=== PATIENT | male | born 1960 | race African-American/Black ===

== ENCOUNTER 2017-01-15 16:20 | Emergency (ER) | payer OTHER ==
[~2017-01-15] VITALS: Wt 73.5 kg
[2017-01-15] MEDS ORDERED: KETOROLAC 30 MG INJ IM STA (18:50)
[2017-01-15] MEDS ORDERED: HYDR-902 PO (20:25)
[2017-01-15] MEDS ORDERED: IBUP-1542 PO (20:25)
--- NOTE | 2017-01-15 20:29 | RADRPT ---
PROCEDURE: XR Chest. CLINICAL INDICATION: Fall, pain TECHNIQUE: Single frontal view of the chest was obtained. COMPARISON: None available FINDINGS: The cardiomediastinal silhouette is normal size. Pulmonary vasculature is within normal limits. Th ere is mild left base atelectasis.. No signs of pleural fluid or pneumothorax are seen. The osseous structures and soft tissues are unre markable. IMPRESSION: No evidence for active cardiopulmonary disease. Mild left base atelectasis.. RPTAT: HBST .Kory Rossi MD, MD Date Time Electronically viewed and signed by .Kory Rossi MD, MD on 01/15/2017 20:29 .T/
--- NOTE | 2017-01-15 20:30 | RADRPT ---
PROCEDURE: XR shoulder, left. CLINICAL INDICATION: Fall, pain TECHNIQUE: internal and external rotation views of the left shoulder were performed. COMPARISON: None. FINDINGS: There is normal osseous mineralization and alignment. No fracture or osseous lesion is identified. T here is normal alignment of the glenohumeral and acromioclavicular joints. The soft tissues are unre markable. IMPRESSION: Unremarkable left shoulder. No visualized fracture or dislocation. RPTAT: HBST .Kory Rossi MD, Date Time Electronically viewed and signed by .Kory Rossi MD, on 01/15/2017 20:30 .T/
--- NOTE | 2017-01-15 20:40 | ERD ---
ER Documentation Chief Complaint Date/Time DATE: 01/15/17 TIME: 20:38 Chief Complaint LEFT ARM/SHOULDER PAIN AFTER INJURY YESTERDAY HPI Patient is a 56-year-old male with no medical problems who presents with shoulder pain and right-sided rib pain. He said that 2 days ago he was jumping on a trampoline and jumped off and landed on his left side. He has left shoulder pain but has range of motion. Hurts to move however. He also has right-sided rib pain with movement. He feels anxious. He tried naproxen. He does not currently have a primary doctor. ROS All systems reviewed and are negative except as per history of present illness. Medications Home Meds Active Scripts Hydrocodone/Acetaminophen ([place] 10-325 Tablet) 1 Each Tablet, 1 TAB PO Q6H Y for PAIN, #7 TAB Prov:JESSY ESCUDERO MD 01/15/17 Ibuprofen* (Motrin*) 600 Mg Tab, 600 MG PO Q6H Y for PAIN AND OR ELEVATED TEMP, #30 TAB Prov:JESSY ESCUDEOR MD 01/15/17 Allergies Allergies: Coded Allergies: No Known Allergy (Unverified , 01/15/17) PMhx/Soc History of Surgery: No Anesthesia Reaction: No Hx Neurological Disorder: No Hx Respiratory Disorders: No Hx Cardiac Disorders: No Hx Psychiatric Problems: No Hx Miscellaneous Medical Probl: Yes (JOINT PAIN) Hx Alcohol Use: No Hx Substance Use: No Hx Tobacco Use: No Smoking Status: Never smoker FmHx Family History: No diabetes Physical Exam Vitals Vital Signs Date Time Temp Pulse Resp B/P Pulse Ox O2 Delivery O2 Flow Rate FiO2 01/15/17 16:26 98.0 78 18 124/89 99 Physical Exam Const: No acute distress Head: Atraumatic Eyes: Normal Conjunctiva ENT: Normal External Ears, Nose and Mouth. Neck: Full range of motion..~ No meningismus. Resp: Clear to auscultation bilaterally Cardio: Regular rate and rhythm, no murmurs Abd: Soft, non tender, non distended. Normal bowel sounds Skin: No petechiae or rashes Back: No midline or flank tenderness Ext: Tenderness to palpation over the right ribs without crepitus, tenderness to palpation of the left shoulder without deformity noted Neur: Awake and alert Psych: Normal Mood and Affect Results 24 hrs Current Medications Medications (Trade) Dose Ordered Sig/Izabel Route PRN Reason Start Time Stop Time Status Last Admin Dose Admin Ketorolac Tromethamine (Toradol) 30 mg ONCE STAT IM 01/15/17 18:50 01/15/17 18:51 DC 01/15/17 19:00 Procedures/MDM X-ray Shoulder 3V Interpreted by me: Bones: No fracture Joints: No dislocation Foreign body: None Chest X-ray 1V Interpreted by me: Soft Tissue: No acute abnormalities Bones: No acute abnormalities Mediastinum/Cardiac Silhouette/Lungs: No acute abnormalities Smoking Cessation Therapy: Pt. was lectured for greater than 3 minutes on the health risks of continued smoking and the benefits of cessation. Patient is a 56-year-old male who presents with right-sided rib pain and left- sided shoulder pain. This happened 2 days ago. There is no obvious fracture or dislocation. I believe he likely has rib contusion and shoulder contusion. The patient will need to follow-up with a primary doctor the local clinics within 24-48 hours. The patient can return for any worsening symptoms. I doubt serious traumatic injury at this time such as intrathoracic or intra- abdominal trauma. I doubt intracranial hemorrhage or cervical spine fracture. Departure Diagnosis: Primary Impression: Injury of upper extremity Encounter type: initial encounter Laterality: left Qualified Code: S49.92XA - Injury of upper extremity, left, initial encounter Additional Impression: Rib contusion Encounter type: initial encounter Laterality: right Qualified Code: S20.211A - Rib contusion, right, initial encounter Condition: Fair Patient Instructions: Rib Contusion, Shoulder Pain (Uncertain Cause) Referrals: [facility] YOU HAVE RECEIVED A MEDICAL SCREENING EXAM AND THE RESULTS INDICATE THAT YOU DO NOT HAVE A CONDITION THAT REQUIRES URGENT TREATMENT IN THE EMERGENCY DEPARTMENT. FURTHER EVALUATION AND TREATMENT OF YOUR CONDITION CAN WAIT UNTIL YOU ARE SEEN IN YOUR DOCTORS OFFICE WITHIN THE NEXT 1-2 DAYS. IT IS YOUR RESPONSIBILITY TO MAKE AN APPOINTMENT FOR FOLOW-UP CARE. IF YOU HAVE A PRIMARY DOCTOR --you should call your primary doctor and schedule an appointment IF YOU DO NOT HAVE A PRIMARY DOCTOR YOU CAN CALL OUR PHYSICIAN REFERRAL HOTLINE AT IF YOU CAN NOT AFFORD TO SEE A PHYSICIAN YOU CAN CHOSE FROM THE FOLLOWING [facility] [address] [facility]. [facility] [address] [facility]. [address] [facility] [address] [facility] [address] [facility]. [facility] [address] [facility] [facility] [address] Additional Instructions: Call your primary care doctor TOMORROW for an appointment during the next 1-2 days.See the doctor sooner or return here if your condition worsens before your appointment time. JESSY ESCUDERO MD Jan 15, 2017 20:40
[2017-01-15 20:44] VITALS: BP 166/91; PULSE 55; RESP 18
== END 2017-01-15 20:45 | disposition home or self-care (01) ==
LOC: FTE 16:20
DX: S49.92XA Unspecified injury of left shoulder and upper arm, initial encounter (principal); S20.211A Contusion of right front wall of thorax, initial encounter; X58.XXXA Exposure to other specified factors, initial encounter; Y92.9 Unspecified place or not applicable
CPT/HCPCS: 71010; 73030; 96372; J1885; Z7502